=== PATIENT | female | born 1980 | race American Indian/Alaskan Native ===

== ENCOUNTER 2018-05-06 19:12 | Emergency (ER) | payer SELFPAY ==
[~2018-05-06] VITALS: Ht 160 cm; Wt 81.6 kg
[2018-05-06 23:00] VITALS: BP 128/81
[2018-05-06] MEDS ORDERED: KETOROLAC TROMETH 60MG/2ML VIAL IM ONE (23:30)
== END 2018-05-06 23:32 | disposition home or self-care (01) ==
LOC: ER 19:12
DX: S59.901A Unspecified injury of right elbow, initial encounter (principal); W22.8XXA Striking against or struck by other objects, initial encounter; Y93.89 Activity, other specified; Y99.8 Other external cause status; Y92.89 Other specified places as the place of occurrence of the external cause
CPT/HCPCS: 73080; 96372; 99283; J1885

== ENCOUNTER 2018-06-23 10:48 | Emergency (ER) | payer SELFPAY ==
[~2018-06-23] VITALS: Ht 160 cm; Wt 81.6 kg
[2018-06-23 11:00] VITALS: BP 135/74
[2018-06-23] MEDS ORDERED: ASPirin 81 mg TAB PO ONE (11:15)
[2018-06-23 12:03] LABS: Basophils # (auto) 0.1 uL; Eosinophils # (auto) 0.1 uL; Hemoglobin 11.7 g/dL (12.2-16.2); White Blood Cell 7.7 10^3/uL (4.4-10.8)
[2018-06-23 12:05] LABS: Basophils % (auto) 0.9 % (0.0-2.0); Eosinophils % (auto) 1.5 % (0.0-7.0); Hematocrit 36.9 % (36.0-46.0); Lymphocytes # (auto) 2.5 uL; Lymphocytes % (auto) 32.2 % (10.0-50.0); Mean Corpuscular Hemoglobin 22.5 pg (28.0-32.0); Mean Corpuscular Hgb Conc. 31.6 g/dL (32.0-36.0); Mean Corpuscular Volume 71.2 fL (80.0-100.0); Monocytes # (auto) 0.4 uL; Monocytes % (auto) 4.6 % (0.0-12.0); Neutrophils # (auto) 4.7 uL; Neutrophils % (auto) 60.8 % (37.0-80.0); Platelet Count (auto) 354 10^3/uL (140-450); Red Blood Cells 5.19 10^6/uL (4.0-5.20); Red Cell Distribution Width 18.1 % (11.8-14.3)
[2018-06-23 12:15] LABS: Albumin 3.9 g/dL (3.4-5.0); Anion Gap 8 (5-15); Blood Urea Nitrogen 9 mg/dL (7-18); Calcium 8.7 mg/dL (8.5-10.1); Carbon Dioxide 24 mmol/L (21-32); Chloride 108 mmol/L (98-107); Glucose 128 mg/dL (74-106); Potassium 3.1 mmol/L (3.5-5.1); Sodium 140 mmol/L (136-145)
[2018-06-23 12:21] LABS: Alanine Aminotransferase 21 U/L (13-56); Alkaline Phosphatase 82 U/L (45-117); Aspartate Aminotransferase 17 U/L (15-37); Bilirubin, Total 0.9 mg/dL (0.2-1.0); GFR African American > 60 mL/min; GFR Non-African American > 60 mL/min; Total Protein 8.5 g/dL (6.4-8.2)
== END 2018-06-23 12:53 | disposition home or self-care (01) ==
LOC: ER 10:48
DX: R07.89 Other chest pain (principal)
CPT/HCPCS: 36415; 71046; 80053; 84484; 85025; 93005

== ENCOUNTER 2024-05-27 14:16 | Emergency (ER) | payer MEDICAID, OTHER ==
[~2024-05-27] VITALS: Ht 160 cm; Wt 96.4 kg
--- NOTE | 2024-05-27 15:30 | ED.PDOC ---
History of Present Illness HPI Comments 43 y.o female presents to the ED fir a chief complaint of a cough associated with congestion and back pain that started 2 days ago. Patient reports spontaneous onset of symptoms with recent illness exposure. Patient denies any chest pain, SOB, fever, chill, nausea, vomiting or diarrhea. She denies any medical, surgical history of allergies. Patient was mildly tachycardic at arrival. Chief Complaint: Cough Time Seen by MD: 15:20 Primary Care Provider: NONE Reviewed Notes: Nurses Notes, Medications, Allergies Allergies: Coded Allergies: NO KNOWN ALLERGIES (Unverified , 05/06/18) Information Source: Patient Mode of Arrival: Ambulatory Severity: Moderate Timing: Days (2) Duration: Since onset Prehospital treatment: None Past Medical History PAST MEDICAL HISTORY: Denies Surgical History: Denies all surgeries AIRPORT LOCATION MANAGER History: No Pertinent AIRPORT LOCATION MANAGER History Family History Family History: Unknown Social History Smoker: Non-Smoker Alcohol: Denies ETOH Use Drugs: Denies Drug Use Lives In: Home Constitutional: denies: chills, diaphoresis, fatigue, fever, malaise, sweats, weakness, others EENTM: reports: nose congestion; denies: blurred vision, double vision, ear bleeding, ear discharge, ear drainage, ear pain, ear ringing, eye pain, eye redness, hearing loss, mouth pain, mouth swelling, nasal discharge, nose bleeding, nose pain, photophobia, tearing, throat pain, throat swelling, voice changes, others Respiratory: reports: cough; denies: hemoptysis, orthopnea, SOB at rest, shortness of breath, SOB with excertion, stridor, wheezing, others Cardiovascular: reports: chest pain (Radiating to her right-sided back); denies: dizzy spells, diaphoresis, Dyspnea on exertion, edema, irregular heart beat, left arm pain, lightheadedness, palpitations, PND, syncope, others Gastrointestinal: denies: abdomen distended, abdominal pain, blood streaked bowels, constipated, diarrhea, dysphagia, difficulty swallowing, hematemesis, melena, nausea, poor appetite, poor fluid intake, rectal bleeding, rectal pain, vomiting, others Genitourinary: denies: abnormal vagina bleeding, burning, dyspareunia, dysuria, flank pain, frequency, hematuria, incontinence, pain, , vagina discharge, urgency, others Neurological: denies: dizziness, fainting, headache, left sided numbness, left sided weakness, numbness, paresthesia, pre-existing deficit, right sided numbness, right sided weakness, seizure, speech problems, tingling, tremors, weakness, others Musculoskeletal: reports: back pain; denies: gout, joint pain, joint swelling, muscle pain, muscle stiffness, neck pain, others Integumetry: denies: bruises, change in color, change in hair/nails, dryness, laceration, lesions, lumps, rash, wounds, others Allergic/Immunocompromised: denies: Difficulty Healing, Frequent Infections, Hives, Itching, others Hematologic/Lymphatic: denies: anemia, blood clots, easy bleeding, easy bruising, swollen glands, others Endocrine: denies: excessive hunger, excessive sweating, excessive thirst, excessive urination, flushing, intolerance to cold, intolerance to heat, unexplained weight gain, unexplained weight loss, others Psychiatric: denies: anxiety, bipolar disorder, depression, hopeless, panic disorder, schizophrenia, sleepless, suicidal, others All Other Systems: Reviewed and Negative Physical Exam General Appearance: Moderate Distress (Patient appears as a [id number] ill 43-year-old female), Obese HEENT: Normal ENT Inspection, Pharynx Normal, TMs Normal Neck: Full Range of Motion, Non-Tender, Normal, Normal Inspection Respiratory: Chest Non-Tender, Lungs Clear, No Accessory Muscle Use, No Respiratory Distress, Normal Breath Sounds, Other (Unremarkable auscultation bilateral lung deng.) Cardiovascular: No Edema, No JVD, No Murmur, No Gallop, Normal Peripheral Pulses, Tachycardia Breast Exam: Deferred Gastrointestinal: No Organomegaly, Non Tender, No Pulsatile Mass, Normal Bowel Sounds, Soft Genitalia: Deferred Pelvic: Deferred Rectal: Deferred Extremities: No calf tenderness, Normal capillary refill, Normal inspection, Normal range of motion, Non-tender, No pedal edema Musculoskeletal : Apperance: Normal Neurologic: Alert, No Motor Deficits, Normal Affect, Normal Mood, No Sensory Deficits Cerebellar Function: Normal Reflexes: Normal Skin: Dry, Normal Color, Warm Lymphatic: No Adenopathy Was a procedure done? Was a procedure done?: No Differential Dx Considerations may include: URI, Viral Syndrome, Bronchitis, PNA, Dehydration, influenza a/B, COVID-19 X-Ray, Labs, Meds, VS Vital Signs Date Time Temp Pulse Resp B/P (MAP) Pulse Ox O2 Delivery O2 Flow Rate FiO2 05/27/24 16:29 98.1 100 19 136/58 (84) 99 98.1 05/27/24 16:29 100 19 99 Room Air 05/27/24 15:34 22 98 Room Air* 0 21 05/27/24 14:56 97.5 109 20 159/63 (95) 99 Lab Test 05/27/24 16:23 Range/Units Influenza Type A Antigen Negative Negative Influenza Type B Antigen Negative Negative SARS-CoV-2 Antigen (Rapid) Negative NEGATIVE Current Medications Medications (Trade) Dose Ordered Sig/Mary Route Start Time Stop Time Status Last Admin Albuterol (Ventolin Medneb) 5 mg ONCE ONCE NEB 05/27/24 15:15 05/27/24 15:16 DC 05/27/24 15:34 Ipratropium [place] (Atrovent Medneb) 0.5 mg ONCE ONCE NEB 05/27/24 15:15 05/27/24 15:16 DC 05/27/24 15:34 Dexamethasone Sodium Phosphate (Decadron Injection) 10 mg ONCE ONCE IM 05/27/24 15:15 05/27/24 15:16 DC 05/27/24 16:24 X-Ray, Labs, Meds, VS Comment All studies performed the ED were evaluated by me personally. Imaging studies were unremarkable for any consolidation or intrapulmonary concerns. Swabs were unremarkable for any influenza or COVID-19. Patient appears to be suffering from a viral upper respiratory illness. Advise utilizing medication as needed as well as good hydration and healthy nutrition throughout illness event. Time of 1ST Reevaluation: 17:31 Reevaluation 1ST: Improved Consultation: PCP Patient Education/Counseling: Diagnosis, Treatment, Prognosis Family Education/Counseling: Diagnosis, Treatment, No Family Present Departure 1 Departure Time of Disposition: 17:31 Impression: Primary Impression: Viral upper respiratory illness Disposition: HOME / SELF CARE / HOMELESS Condition: Stable Additional Instructions: Advise utilizing medication as needed for symptomatic relief as well as good hydration and healthy nutrition throughout illness event. e-Prescriptions Benzonatate (Benzonatate) 100 Mg Cap 1 CAP PO Q6HP PRN, #20 CAP Prov: ELY WEINSTEIN PAC 05/27/24 Albuterol Sulfate (Albuterol Sulfate Hfa) 108 Mcg/Act Aer 108 MCG IN Q4HP PRN, #1 AER Prov: ELY WEINSTEIN PAC 05/27/24 Acetaminophen (Acetaminophen) 500 Mg Tab 500 MG PO Q4HP PRN, #20 TAB Prov: ELY WEINSTEIN PAC 05/27/24 Discharged With: Self, Friend Critical Care Note Critical Care Time?: No Stability Stability form required: No I personally scribed for ELY WEINSTEIN PAC ([email or web address]) on 05/27/24 at 15:30. Electronically submitted by Tori Polanco ([facility]). ELY WEINSTEIN PAC May 27, 2024 15:30
[2024-05-27] MEDS: IPRATROPIUM BROM 0.5 MG/2.5ML INH SOL NEB ONE (15:34)
[2024-05-27] MEDS: ALBUTEROL SULF 2.5 MG/0.5ML(0.5%) NEB SOLN NEB ONE (15:34)
--- NOTE | 2024-05-27 15:34 | DVH ---
CHEST RADIOGRAPH Indication: Shortness of breath Technique: Single frontal view of the chest was obtained Comparison: None FINDINGS: Lines and Tubes: None Lungs: No focal consolidation. Pleura: No effusion. No pneumothorax. Cardiomediastinal contours: Unremarkable Bones: No acute osseous abnormality. IMPRESSION: No acute cardiopulmonary disease.
[2024-05-27] MEDS: DexAMETHasone SOD PHOS 10MG/1ML VIAL INJ IM ONE (16:24)
[2024-05-27 17:21] LABS: COVID19 ANTIGEN SOFIA FIA NEGATIVE (NEGATIVE); Rapid Influenza A Negative (Negative); Rapid Influenza B Negative (Negative)
[2024-05-27] MEDS ORDERED: BENZ100C97 PO (17:32)
[2024-05-27] MEDS ORDERED: ALBU108A5 IN (17:32)
[2024-05-27] MEDS ORDERED: ACET500T58 PO (17:32)
[2024-05-27 18:06] VITALS: BP 122/61; PULSE 96; RESP 16; TEMP 98.2; O2SAT 100
== END 2024-05-27 18:07 | disposition home or self-care (01) ==
LOC: ER 14:16
DX: J06.9 Acute upper respiratory infection, unspecified (principal); B97.89 Other viral agents as the cause of diseases classified elsewhere; Z20.822 Contact with and (suspected) exposure to COVID-19
CPT/HCPCS: 36415; 71045; 87426; 87804; 94640; 96372; 99284; J1100

== ENCOUNTER 2024-07-18 14:27 | Inpatient (IN) | payer BC, MEDICAID ==
[~2024-07-18] VITALS: Ht 160 cm; Wt 97.1 kg
[~2024-07-18 14:27] MED LIST: ACET500T58 PO; ALBU108A5 IN; BENZ100C97 PO
--- NOTE | 2024-07-18 15:08 | ED.PDOC ---
History of Present Illness HPI Comments 43F presents to the ER w/ prior Hx of asthma which may be associated to the c/c of SOB. Pt reports on having SOB and right sided CP whenever she breathes in for 3 days. Pt states on also having cough for a day and a half. Denies chills, fever, N/V/D, or other associated symptom's, modifiers, or recent injuries or sick contact at this time. Chief Complaint: Shortness of Breath Time Seen by MD: 15:00 Primary Care Provider: none Reviewed Notes: Nurses Notes, Medications, Allergies Allergies: Coded Allergies: NO KNOWN ALLERGIES (Unverified , 05/06/18) Home Meds Active Scripts Benzonatate (Benzonatate) 100 Mg Cap, 1 CAP PO Q6HP PRN, #20 CAP Prov:ELY WEINSTEIN PAC 05/27/24 Albuterol Sulfate (Albuterol Sulfate Hfa) 108 Mcg/Act Aer, 108 MCG IN Q4HP PRN, #1 AER Prov:ELY WEINSTEIN PAC 05/27/24 Acetaminophen (Acetaminophen) 500 Mg Tab, 500 MG PO Q4HP PRN, #20 TAB Prov:ELY WEINSTEIN PAC 05/27/24 Information Source: Patient Mode of Arrival: Ambulatory Severity: Moderate Timing: Days Duration: Since onset, Days Prehospital treatment: None Past Medical History PAST MEDICAL HISTORY: Asthma Surgical History: Denies all surgeries BOX COVERING MACHINE OPERATOR History: No Pertinent BOX COVERING MACHINE OPERATOR History Family History Family History: Reviewed,noncontributory to illness, Unknown Social History Smoker: Non-Smoker Alcohol: Denies ETOH Use Drugs: Denies Drug Use Lives In: Home Constitutional: denies: chills, diaphoresis, fatigue, fever, malaise, sweats, w eakness, others EENTM: denies: blurred vision, double vision, ear bleeding, ear discharge, ear drainage, ear pain, ear ringing, eye pain, eye redness, hearing loss, mouth pain, mouth swelling, nasal discharge, nose bleeding, nose congestion, nose pain, photophobia, tearing, throat pain, throat swelling, voice changes, others Respiratory: reports: cough, shortness of breath; denies: hemoptysis, orthopnea, SOB at rest, SOB with excertion, stridor, wheezing, others Cardiovascular: reports: chest pain; denies: dizzy spells, diaphoresis, Dyspnea on exertion, edema, irregular heart beat, left arm pain, lightheadedness, palpitations, PND, syncope, others Gastrointestinal: denies: abdomen distended, abdominal pain, blood streaked bowels, constipated, diarrhea, dysphagia, difficulty swallowing, hematemesis, melena, nausea, poor appetite, poor fluid intake, rectal bleeding, rectal pain, vomiting, others Genitourinary: denies: abnormal vagina bleeding, burning, dyspareunia, dysuria, flank pain, frequency, hematuria, incontinence, pain, , vagina discharge, urgency, others Neurological: denies: dizziness, fainting, headache, left sided numbness, left sided weakness, numbness, paresthesia, pre-existing deficit, right sided numbness, right sided weakness, seizure, speech problems, tingling, tremors, weakness, others Musculoskeletal: denies: back pain, gout, joint pain, joint swelling, muscle pain, muscle stiffness, neck pain, others Integumetry: denies: bruises, change in color, change in hair/nails, dryness, laceration, lesions, lumps, rash, wounds, others Allergic/Immunocompromised: denies: Difficulty Healing, Frequent Infections, Hives, Itching, others Hematologic/Lymphatic: denies: anemia, blood clots, easy bleeding, easy bruising, swollen glands, others Endocrine: denies: excessive hunger, excessive sweating, excessive thirst, excessive urination, flushing, intolerance to cold, intolerance to heat, unexplained weight gain, unexplained weight loss, others Psychiatric: denies: anxiety, bipolar disorder, depression, hopeless, panic disorder, schizophrenia, sleepless, suicidal, others All Other Systems: Reviewed and Negative Physical Exam General Appearance: Moderate Distress, Normal HEENT: Normal ENT Inspection, Pharynx Normal, TMs Normal Neck: Full Range of Motion, Non-Tender, Normal, Normal Inspection Respiratory: Chest Non-Tender, No Accessory Muscle Use, No Respiratory Distress, Other (Coarse breath sounds) Cardiovascular: No Edema, No JVD, No Murmur, No Gallop, Normal Peripheral Pulses, Regular Rate/Rhythm Breast Exam: Deferred Gastrointestinal: No Organomegaly, Non Tender, No Pulsatile Mass, Normal Bowel Sounds, Soft Genitalia: Deferred Pelvic: Deferred Rectal: Deferred Extremities: No calf tenderness, Normal capillary refill, Normal inspection, Normal range of motion, Non-tender, No pedal edema Musculoskeletal : Apperance: Normal Neurologic: Alert, manager file II-XII nml as Tested, No Motor Deficits, Normal Affect, Normal Mood, No Sensory Deficits Cerebellar Function: Normal Reflexes: Normal Skin: Dry, Normal Color, Warm Peripheral Pulses: 3+ Radial (R), 3+ Radial (L) Lymphatic: No Adenopathy Was a procedure done? Was a procedure done?: No Differential Dx Considerations may include: Pneumonitis Electrolyte imbalance X-Ray, Labs, Meds, VS Vital Signs Date Time Temp Pulse Resp B/P (MAP) Pulse Ox O2 Delivery O2 Flow Rate FiO2 07/18/24 14:47 19 97 Room Air* 0 21 07/18/24 14:43 97.1 116 19 133/69 (90) 97 Lab Test 07/18/24 15:00 Range/Units White Blood Count Pending Red Blood Count Pending Hemoglobin Pending Hematocrit Pending Mean Corpuscular Volume Pending Mean Corpuscular Hemoglobin Pending Mean Corpuscular Hemoglobin Concent Pending Red Cell Distribution Width Pending Platelet Count Pending Mean Platelet Volume Pending Neutrophils (%) (Auto) Pending Lymphocytes (%) (Auto) Pending Monocytes (%) (Auto) Pending Basophils (%) (Auto) Pending Neutrophils # (Auto) Pending Lymphocytes # (Auto) Pending Monocytes # (Auto) Pending D-Dimer, Quantitative Pending Sodium Level Pending Potassium Level Pending Chloride Level Pending Carbon Dioxide Level Pending Anion Gap Pending Blood Urea Nitrogen Pending Creatinine Pending Glomerular Filtration Rate Calc Pending BUN/Creatinine Ratio Pending Serum Glucose Pending Calcium Level Pending Patient alert pain Complaining of chest pain especially after deep inspiration. Cough. Saturation pristine on room air. Tachycardia. Was given steroid. Was given aspirin. Explained to the patient. Continue cardiac monitoring. EKG reviewed does not show any acute changes. Time of 1ST Reevaluation: 15:30 Reevaluation 1ST: Unchanged Patient Education/Counseling: Diagnosis, Treatment, Prognosis Family Education/Counseling: No Family Present Departure 1 Departure Time of Disposition: 15:15 Impression: Primary Impression: Pneumonitis Additional Impression: Chest pain of unknown etiology Disposition: ADMITTED INPATIENT Admit to: Med Surg Condition: Guarded Critical Care Note Critical Care Time?: No Stability Stability form required: No Heart Score Heart Score: Heart Score Response (Comments) Value History Slightly Suspicious 0 EKG Normal 0 Age <45 0 Risk Factors No known risk factors 0 Troponin N/A 0 Total 0 I personally scribed for BETTINA PÑEA MD ([email or web address]) on 07/18/24 at 15:08. Electronically submitted by José Luis Henry ([email or web address]). BETTINA PEÑA MD Jul 18, 2024 15:08
[2024-07-18 15:11] LABS: Basophils # (auto) 0.1 10 ^3/uL (0-0.2); Eosinophils # (auto) 0.4 10 ^3/uL (0-0.8); Lymphocytes # (auto) 2.3 10 ^3/uL (0.4-5.4); Monocytes # (auto) 0.6 10 ^3/uL (0-1.3); Monocytes % (auto) 7.6 % (0.0-12.0); Platelet Count (auto) 326 10^3/uL (140-450); Red Cell Distribution Width 19.5 % (11.8-14.3); White Blood Cell 8.2 10^3/uL (4.4-10.8)
[2024-07-18 15:13] LABS: Basophils % (auto) 1.2 % (0.0-2.0); Eosinophils % (auto) 4.9 % (0.0-7.0); Hematocrit 28.6 % (36.0-46.0); Hemoglobin 8.2 g/dL (12.2-16.2); Lymphocytes % (auto) 28.5 % (10.0-50.0); Mean Corpuscular Hemoglobin 16.3 pg (28.0-32.0); Mean Corpuscular Hgb Conc. 28.6 g/dL (32.0-36.0); Mean Corpuscular Volume 56.8 fL (80.0-100.0); Neutrophils # (auto) 4.7 10 ^3/uL (1.6-8.6); Neutrophils % (auto) 57.8 % (37.0-80.0); Red Blood Cells 5.04 10^6/uL (4.0-5.20)
[2024-07-18] MEDS: ASPirin 325 MG TAB PO ONE (15:15)
[2024-07-18 15:22] LABS: Sodium 140 mmol/L (136-145)
[2024-07-18 15:23] LABS: Anion Gap 9 (5-15); Calcium 9.5 mg/dL (8.7-10.4); Carbon Dioxide 23 mmol/L (20-31)
[2024-07-18 15:28] LABS: BUN/Creatinine Ratio 17.7 (10.0-20.0); Blood Urea Nitrogen 11 mg/dL (9-23); Chloride 108 mmol/L (98-107); Potassium 3.3 mmol/L (3.5-5.1)
[2024-07-18 15:31] LABS: Glucose 168 mg/dL (74-106)
[2024-07-18 15:43] LABS: Hypochromia Moderate; Platelet Estimate Adequate
[2024-07-18 15:44] LABS: Ovalocytes FEW
--- NOTE | 2024-07-18 15:55 | DVH ---
CHEST RADIOGRAPH Indication: cough Technique: Single frontal view of the chest was obtained COMPARISON: XY CHEST PORTABLE on DOS: 05/27/24 FINDINGS: Lines and Tubes: None Lungs: Clear Pleura: No effusion. No pneumothorax. Cardiomediastinal contours: Unremarkable Bones: Unremarkable IMPRESSION: 1. No acute disease.
[2024-07-18] MEDS: methylPREDNISolone SOD SUCC 125 MG/2 ML VL IV ONE (18:26)
[2024-07-18] MEDS: POTASSIUM CHL 20 Meq TABLET PO ONE (20:25)
[2024-07-18 20:30] VITALS: RESP 18; O2SAT 98
[2024-07-18 21:41] VITALS: BP 131/69; PULSE 93; RESP 19; TEMP 98.1; O2SAT 97
[2024-07-18] MEDS: KETOROLAC TROMETH 30 MG/ML 1ML VIAL IV SCH (22:00)
[2024-07-18 22:38] LABS: COVID19 ANTIGEN SOFIA FIA NEGATIVE (NEGATIVE); Rapid Influenza A Negative (Negative); Rapid Influenza B Negative (Negative)
[2024-07-18] MEDS: SODIUM CHLORIDE 0.9% 1,000 ML IV ONE (22:44)
[2024-07-18] MEDS: ACETAMINOPHEN 325 MG TAB PO SCH (22:45)
[2024-07-18 23:08] LABS: % Iron Saturation 4.5 % (15-50)
--- NOTE | 2024-07-19 03:41 | DVHHPRES ---
History of Present Illness Resident Creating Document: CALEB STILES RESIDENT Reason for Visit: chest pain History of Present Illness A 43-year-old female with a past medical history of asthma presents to the emergency department with a complaint of shortness of breath and pleuritic right upper chest pain for the past three days. She describes the pain as sharp, worse with inspiration, and localized to a tender area on palpation. She also reports a dry cough that began 1 days ago. The SOB is due to the pain. She denies fever, chills, nausea, vomiting, or recent upper respiratory infections. Laboratory evaluation revealed hypokalemia and anemia with a microcytic pattern. Iron panel results indicate iron deficiency anemia. Further history revealed metrorrhagia, with the last menstrual period in May, which was described as significantly heavy. Review of Systems Constitutional: No: Fever, Chills, Sweats, Weakness, Malaise, Other Eyes: No: Pain, Vision change, Conjunctivae inflammation, Eyelid inflammation, Other, Redness ENT: No: Ear pain, Ear discharge, Nose pain, Nose discharge, Nose congestion, Mouth pain, Mouth swelling, Throat pain, Throat swelling, Other Respiratory: No: Cough, Dry, Shortness of breath, SOB with excertion, Wheezing, Hemoptysis, Pleuritic Pain, Sputum, Wheezing, Other Cardiovascular: No: Chest Pain, Palpitations, Orthopnea, Paroxysmal Noc. Dyspnea, Edema, Lt Headedness, Other Gastrointestinal: No: Nausea, Vomiting, Abdominal Pain, Diarrhea, Constipation, Melena, Hematochezia, Other Genitourinary: No Dysuria, No Frequency, No Incontinence, No Hematuria, No Retention, No Other Musculoskeletal: No: other, neck pain, shoulder pain, arm pain, back pain, hand pain, leg pain, foot pain Skin: No: Rash, Lesions, Jaundice, Bruising, Other Neurological: No: Weakness, Numbness, Incoordination, Change in speech, Confusion, Seizures, Other Allergies: Coded Allergies: NO KNOWN ALLERGIES (Unverified , 05/06/18) Medications Current Medications Medications Dose Ordered Sig/Mary Route Start Time Stop Time Status Last Admin Dose Admin Acetaminophen 650 mg Q4HR PO 07/18/24 22:00 07/18/24 22:45 650 MG Ketorolac Tromethamine 30 mg TID IV 07/18/24 22:00 07/23/24 21:59 Ferrous Sulfate 325 mg BIDWM PO 07/19/24 08:00 Exam Vital Signs Vital Signs Date Time Temp Pulse Resp B/P (MAP) Pulse Ox O2 Delivery O2 Flow Rate FiO2 07/18/24 21:41 98.1 93 19 131/69 (89) 97 98.1 07/18/24 21:41 Room Air* 0 21 General Appearance: Alert, Oriented X3, Cooperative HEENT: Atraumatic, PERRLA, EOMI Respiratory: Clear to auscultation, Normal air movement Cardiovascular: Regular rate, Normal S1, Normal S2 Abdominal: Normal bowel sounds, Soft Extremities: No clubbing, No cyanosis Skin: No rashes, No breakdown Neuro: Normal gait, Normal speech Psych/Mental Status: Mental status NL, Mood NL Labs/Xrays Labs Test 07/18/24 21:16 07/18/24 15:00 Range/Units Influenza Type A Antigen Negative Negative Influenza Type B Antigen Negative Negative SARS-CoV-2 Antigen (Rapid) Negative NEGATIVE White Blood Count 8.2 4.4-10.8 10^3/uL Red Blood Count 5.04 4.0-5.20 10^6/uL Hemoglobin 8.2 L 12.2-16.2 g/dL Hematocrit 28.6 L 36.0-46.0 % Mean Corpuscular Volume 56.8 L 80.0-100.0 fL Mean Corpuscular Hemoglobin 16.3 L 28.0-32.0 pg Mean Corpuscular Hemoglobin Concent 28.6 L 32.0-36.0 g/dL Red Cell Distribution Width 19.5 H 11.8-14.3 % Platelet Count 326 140-450 10^3/uL Mean Platelet Volume 8.3 6.9-10.8 fL Neutrophils (%) (Auto) 57.8 37.0-80.0 % Lymphocytes (%) (Auto) 28.5 10.0-50.0 % Monocytes (%) (Auto) 7.6 0.0-12.0 % Eosinophils (%) (Auto) 4.9 0.0-7.0 % Basophils (%) (Auto) 1.2 0.0-2.0 % Neutrophils # (Auto) 4.7 1.6-8.6 10 ^3/uL Lymphocytes # (Auto) 2.3 0.4-5.4 10 ^3/uL Monocytes # (Auto) 0.6 0-1.3 10 ^3/uL Eosinophils # (Auto) 0.4 0-0.8 10 ^3/uL Basophils # (Auto) 0.1 0-0.2 10 ^3/uL Nucleated Red Blood Cells 0.0 % Platelet Estimate Adequate Hypochromasia (manual) Moderate Microcytosis Moderate Ovalocytes Few Stomatocytes D-Dimer, Quantitative 0.23 0.0-0.49 mg/L FEU Sodium Level 140 136-145 mmol/L Potassium Level 3.3 L 3.5-5.1 mmol/L Chloride Level 108 H 98-107 mmol/L Carbon Dioxide Level 23 20-31 mmol/L Anion Gap 9 5-15 Blood Urea Nitrogen 11 9-23 mg/dL Creatinine 0.62 0.550-1.02 mg/dL Glomerular Filtration Rate Calc 115 >90 mL/min BUN/Creatinine Ratio 17.7 10.0-20.0 Serum Glucose 168 H 74-106 mg/dL Calcium Level 9.5 8.7-10.4 mg/dL Iron Level 22 L 50-170 ug/dL Total Iron Binding Capacity 493 H 250-425 ug/dL Percent Iron Saturation 4.5 L 15-50 % Ferritin 4.2 L 10-291 ng/mL Troponin I High Sensitivity < 3 L </=34 ng/L Thyroid Stimulating Hormone (TSH) 1.32 0.55-4.78 uIU/mL Assessment/Plan Assessment/Plan 43-year-old female with a history of asthma presenting with pleuritic right- sided chest pain, shortness of breath, and anemia, with laboratory findings concerning for iron deficiency anemia secondary to heavy menstrual bleeding. #Pleuritic Chest Pain Likely musculoskeletal in nature given tenderness to palpation. Normal EKG, normal xray Pain control with NSAIDs and acetaminophen. #Dyspnea Likely secondary to pleuritic pain and possible anemia. Monitor oxygen saturation, #Iron Deficiency Anemia Likely secondary to metrorrhagia. Start iron supplementation. Pelvic US Occult stool blood Obgyn consult #Hypokalemia K PO #H/o Asthma No acute exacerbation noted. Continue as-needed inhaler use. Case discussed with Dr Mendoza Time spent on care 23 min Plan discussed with: Patient, Other My Orders Orders - CALEB STILES RESIDENT Procedure Category Date Status Time Admit ADMIT 07/18/24 Transmitted 20:42 Acetaminophen Tablet PHA 07/18/24 In Process (Tylenol Tablet) 22:00 Ketorolac Injection PHA 07/18/24 In Process (Toradol Injection) 22:00 Sodium Chloride 0.9% PHA 07/18/24 In Process 20:45 Electrocardigram EKG 07/18/24 Logged 20:48 Complete Blood Count LAB 07/19/24 Logged 04:00 Comprehensive LAB 07/19/24 Logged Metabolic Panel 04:00 Hemoglobin A1c LAB 07/19/24 Logged 04:00 Lipid Panel LAB 07/19/24 Logged 04:00 Magnesium LAB 07/19/24 Logged 04:00 Phosphorus LAB 07/19/24 Logged 04:00 Vitamin B12 LAB 07/19/24 Logged 04:00 Vitamin D, 25-Hydroxy LAB 07/19/24 Logged 04:00 Communication Order ORDERS 07/18/24 Transmitted 23:54 Ferrous Sulfate Tablet PHA 07/19/24 In Process 08:00 Urine ED NURSING 07/19/24 Transmitted Regular Diet DIET 07/19/24 Transmitted Breakfast Date of Service: Jul 18, 2024 Billing Provider: LAUREN MENDOZA MD Common Visit Codes: 37408-INRYOER INP/OBS CARE (HIGH) CALEB STILES RESIDENT Jul 19, 2024 03:41 LAUREN MENDOZA MD Jul 19, 2024 14:14
[2024-07-19 04:06] LABS: Eosinophils # (auto) 0.5 10 ^3/uL (0-0.8); Nucleated Red Blood Cells % 0.1 %
[2024-07-19 04:09] LABS: Basophils # (auto) 0 10 ^3/uL (0-0.2); Basophils % (auto) 0.8 % (0.0-2.0); Eosinophils % (auto) 8.1 % (0.0-7.0); Hematocrit 27.3 % (36.0-46.0); Hemoglobin 7.7 g/dL (12.2-16.2); Lymphocytes # (auto) 1.9 10 ^3/uL (0.4-5.4); Lymphocytes % (auto) 30.4 % (10.0-50.0); Mean Corpuscular Hemoglobin 16.2 pg (28.0-32.0); Mean Corpuscular Hgb Conc. 28.1 g/dL (32.0-36.0); Mean Corpuscular Volume 57.6 fL (80.0-100.0); Monocytes # (auto) 0.7 10 ^3/uL (0-1.3); Monocytes % (auto) 10.8 % (0.0-12.0); Neutrophils # (auto) 3.1 10 ^3/uL (1.6-8.6); Neutrophils % (auto) 49.9 % (37.0-80.0); Platelet Count (auto) 279 10^3/uL (140-450); Red Blood Cells 4.74 10^6/uL (4.0-5.20); Red Cell Distribution Width 19.7 % (11.8-14.3); White Blood Cell 6.2 10^3/uL (4.4-10.8)
[2024-07-19 04:19] LABS: Alanine Aminotransferase 19 U/L (7-40); Albumin 4.2 g/dL (3.2-4.8); Alkaline Phosphatase 72 U/L (46-116); Anion Gap 9 (5-15); Aspartate Aminotransferase 28 U/L (13-40); BUN/Creatinine Ratio 17.6 (10.0-20.0); Blood Urea Nitrogen 9 mg/dL (9-23); Carbon Dioxide 21 mmol/L (20-31); Cholesterol 109 mg/dL (< 200); LDL Cholesterol 70 mg/dL (< 100); Potassium 3.9 mmol/L (3.5-5.1); Sodium 138 mmol/L (136-145); Triglycerides 99 mg/dL (< 150)
[2024-07-19 04:20] LABS: Bilirubin, Total 0.9 mg/dL (0.2-1.0); Chloride 108 mmol/L (98-107); Glucose 133 mg/dL (74-106); HDL Cholesterol 31 mg/dL (40-59)
[2024-07-19 05:00] VITALS: BP 127/60; PULSE 93; RESP 17; TEMP 98.3; O2SAT 98
[2024-07-19 05:30] LABS: Urine Blood Negative /uL (Negative); Urine Clarity Clear (Clear); Urine Color Light-Yellow (Yellow); Urine Mucus FEW (None Seen); Urine Protein, UAD Negative (Negative); Urine Specific Gravity 1.024 (1.001-1.035); Urine Squamous Epithelial Cell FEW /hpf (<5); Urine Urobilinogen Normal (Negative); Urine WBC 2 /HPF (0-5); Urine pH 5.5 (5.0-9.0)
[2024-07-19] MEDS: FERROUS SULFATE 325mg EC TAB PO SCH (07:05)
--- NOTE | 2024-07-19 08:02 | DVH ---
EXAM: US Pelvis Transabdominal, Complete CLINICAL INDICATION: metrorragias TECHNIQUE: Real-time complete transabdominal pelvic ultrasound with image documentation. COMPARISON: None FINDINGS: UTERUS/CERVIX: Multiple uterine fibroids, largest measuring up to 7.5 cm. The uterus measures 13.8 x 10.3 x 10.1 cm. The endometrial stripe measures 1.36 cm in thickness. RIGHT OVARY: Right simple ovarian cysts measuring up to 1.1 cm. Normal blood flow. The right ovar y measures 7.3 x 5.1 x 5.3 cm. LEFT OVARY: Simple left ovarian cyst measuring up to 2.0 cm. Normal blood flow. The left ovary me asures 7.9 x 6.4 x 6.5 cm. FREE FLUID: No free fluid. BLADDER: Unremarkable as visualized. Wall is normal thickness for degree of distention. OTHER FINDINGS: . . . .. IMPRESSION: Uterine fibroids.
[2024-07-19 08:30] VITALS: BP 140/55; PULSE 94; RESP 18; TEMP 98.4; O2SAT 99
--- NOTE | 2024-07-19 14:06 | DVHINCON2 ---
Date of service: Jul 19, 2024 Reason for Consultation Uterine fibroids and anemia History of Present Illness History Source: Patient Exam Limitations: No limitations HPI Lolita Briscoe is a 43 y/o female patient with past medical history of asthma, who presented to the ED after a few days of right chest pain, associated with SOB and cough. During initial evaluation, CBC with evidence of anemia (Hb 7.7) and abdominal ultrasound showed evidence of multiple uterine fibroids up to 7.5 cm. During interview, LMP: 06/26/24. Menstrual period usually last four to five days, pt reports the use of five to six tampons per day with "cramps" only the first few days. Patient denies abdominal or pelvic pain, vomiting, diarrhea, blood in the stool or urinary symptoms. x 2, last vaginal delivery 23 years ago. No control. No sexual encounters in the past year. No sexual partner at this time. Home Meds Active Scripts Ibuprofen Micronized (MOTRIN TABLET) 600 Mg Tb, 600 MG PO TID PRN for 5 Days, #15 TAB *Black box warning-NSAIDS can increase risk of MO & hypertension, GI irritation, ulceration, bleed, perferation. Do not use post cardiac surgery. Use short duration/lowest effective dose. Prov:MINA MORALES CREASING MACHINE OPERATOR 07/19/24 Albuterol Sulfate (Albuterol Sulfate Hfa) 108 Mcg/Act Aer, 108 MCG IN Q4HP PRN for 30 Days, #1 AER Prov:MINA MORALES CREASING MACHINE OPERATOR 07/19/24 Benzonatate (Benzonatate) 100 Mg Cap, 1 CAP PO Q6HP PRN, #20 CAP Prov:ELY WEINSTEIN PAC 05/27/24 Acetaminophen (Acetaminophen) 500 Mg Tab, 500 MG PO Q4HP PRN, #20 TAB Prov:ELY WEINSTEIN PAC 05/27/24 Current Meds Albuterol inhaler Chest Pain Chief Complaint: Discomfort Onset/Duration of Chest Pain: 1 Week Chest Pain Timing: Gradual onset Quality of Chest Pain: Aching, Tearing Location of Chest Pain: Right Chest Pain Radiation: Radiates to back Prior Chest Pain/Cardiac Dalila: No prior chest pain Aggrevating Factors for CP: Coughing, Change in position Associated Symptoms of Chest P: Back pain, Cough Timing/Duration of Back Pain: > 1 Week Back Pain Location: T-spine, Paraspinous muscles Associated Symptoms of Back Pa: Muscle spasms Chief Complaint for Wheezing/A: Hx of asthma Onset/Duration of Wheezing/Ast: Gradual, Waxing, Waning Associated Symptoms for Wheez: Hurts to breath, Right chest discomfort Past Medical History Cardiac: No pertinent Hx Pulmonary: Asthma Central Nervous System: No pertinent Hx GI: No pertinent Hx Hemotology/Oncology: No pertinent Hx Hepatobiliary: No pertinent Hx Psychiatric: No pertinent Hx Musculoskeletal: No pertinent Hx Rheumotologic: No pertinent Hx Infectious Disease: No peritnent Hx ENT: No pertinent Hx Renal/: No pertinent Hx Endocrine: No pertinent Hx Dermatology: No pertinent Hx Past Surgical History: Appendectomy Family History: Cancer (Niece lymphoma, grandfather unknown primary) Patient Family History: Chronic obstructive pulmonary disease G8 MOTHER Smoker: No Hx (Negative) Alocohol: None Drugs: None Lives with: With family Review of Systems Constitutional: No symptom reported Ears, Nose, & Throat: No symptom reported Eyes: No symptom reported Pulmonary/Respiratory: Dyspnea, Cough Cardiovascular: No symptom reported Gastrointestinal: No symptom reported Genitourinary: No symptom reported Musculoskeletal: No symptom reported Skin: No symptom reported Psychiatric: No symptom reported Endocrine: No symptom reported Hemotologic/Lymphatic: No symptom reported H&P Exam Vital Signs Vital Signs Date Time Temp Pulse Resp B/P (MAP) Pulse Ox O2 Delivery O2 Flow Rate FiO2 07/19/24 08:30 98.4 94 18 140/55 (83) 99 98.4 07/18/24 21:41 Room Air* 0 21 General Appeara: Well developed, Well nourished Head Exam: Normal inspection Eye Exam: bilateral eye PERRL Pulmonary/Respiratory: Decreased breath sounds, Rhonci, Wheezing Cardiovascular/Chest: Normal Rhythm Abdominal Exam: Normal bowel sounds, Soft, No tenderness Rectal Exam: Deferred Pelvic Exam: 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 [place] / A AGE / SEX: 43 / F ADM STATUS: ADM IN SERVICE 0700 ORDERING PHYSICIAN: CALEB STILES RESIDENT PROCEDURE(s): PELUS - PELVIC REASON: metrorragias ORDER NUMBER(s): [id number], ACCESSION NUMBER(s): [id number] EXAM: US Pelvis Transabdominal, Complete CLINICAL INDICATION: metrorragias TECHNIQUE: Real-time complete transabdominal pelvic ultrasound with image documentation. COMPARISON: None FINDINGS: UTERUS/CERVIX: Multiple uterine fibroids, largest measuring up to 7.5 cm. The uterus measures 13.8 x 10.3 x 10.1 cm. The endometrial stripe measures 1.36 cm in thickness. RIGHT OVARY: Right simple ovarian cysts measuring up to 1.1 cm. Normal blood flow. The right ovary measures 7.3 x 5.1 x 5.3 cm. LEFT OVARY: Simple left ovarian cyst measuring up to 2.0 cm. Normal blood flow. The left ovary measures 7.9 x 6.4 x 6.5 cm. FREE FLUID: No free fluid. BLADDER: Unremarkable as visualized. Wall is normal thickness for degree of distention. OTHER FINDINGS: . . . .. IMPRESSION: Uterine fibroids. ATED BY: ELY BLACK MD DICTATED DATE/TIME: 07/19/24 0759 Labs Test 07/19/24 03:16 07/18/24 21:16 07/18/24 20:20 07/18/24 15:00 Range/Units White Blood Count 6.2 4.4-10.8 10^3/uL Red Blood Count 4.74 4.0-5.20 10^6/uL Hemoglobin 7.7 L 12.2-16.2 g/dL Hematocrit 27.3 L 36.0-46.0 % Mean Corpuscular Volume 57.6 L 80.0-100.0 fL Mean Corpuscular Hemoglobin 16.2 L 28.0-32.0 pg Mean Corpuscular Hemoglobin Concent 28.1 L 32.0-36.0 g/dL Red Cell Distribution Width 19.7 H 11.8-14.3 % Platelet Count 279 140-450 10^3/uL Mean Platelet Volume 8.5 6.9-10.8 fL Neutrophils (%) (Auto) 49.9 37.0-80.0 % Lymphocytes (%) (Auto) 30.4 10.0-50.0 % Monocytes (%) (Auto) 10.8 0.0-12.0 % Eosinophils (%) (Auto) 8.1 H 0.0-7.0 % Basophils (%) (Auto) 0.8 0.0-2.0 % Neutrophils # (Auto) 3.1 1.6-8.6 10 ^3/uL Lymphocytes # (Auto) 1.9 0.4-5.4 10 ^3/uL Monocytes # (Auto) 0.7 0-1.3 10 ^3/uL Eosinophils # (Auto) 0.5 0-0.8 10 ^3/uL Basophils # (Auto) 0 0-0.2 10 ^3/uL Nucleated Red Blood Cells 0.1 % Sodium Level 138 136-145 mmol/L Potassium Level 3.9 3.5-5.1 mmol/L Chloride Level 108 H 98-107 mmol/L Carbon Dioxide Level 21 20-31 mmol/L Anion Gap 9 5-15 Blood Urea Nitrogen 9 9-23 mg/dL Creatinine 0.51 L 0.550-1.02 mg/dL Glomerular Filtration Rate Calc 120 >90 mL/min BUN/Creatinine Ratio 17.6 10.0-20.0 Serum Glucose 133 H 74-106 mg/dL Hemoglobin A1c 6.1 H <5.7 % A1C Calcium Level 9.0 8.7-10.4 mg/dL Phosphorus Level 3.0 2.4-5.1 mg/dL Magnesium Level 2.0 1.6-2.6 mg/dL Total Bilirubin 0.9 0.2-1.0 mg/dL Aspartate Amino Transferase (AST) 28 13-40 U/L Alanine Aminotransferase (ALT) 19 7-40 U/L Alkaline Phosphatase 72 46-116 U/L Total Protein 7.0 5.7-8.2 g/dL Albumin 4.2 3.2-4.8 g/dL Triglycerides Level 99 < 150 mg/dL Cholesterol Level 109 < 200 mg/dL LDL Cholesterol 70 < 100 mg/dL HDL Cholesterol 31 L 40-59 mg/dL Vitamin B12 Level 478 211-911 pg/mL Vitamin D 25-Hydroxy 5.6 L 30.0-100 ng/mL Influenza Type A Antigen Negative Negative Influenza Type B Antigen Negative Negative SARS-CoV-2 Antigen (Rapid) Negative NEGATIVE Urine Color Light-yellow Yellow Urine Clarity Clear Clear Urine pH 5.5 5.0-9.0 Urine Specific [place] 1.024 1.001-1.035 Urine Protein Negative Negative Urine Ketones Negative Negative Urine Blood Negative Negative /uL Urine Nitrite Negative Negative Urine Bilirubin Negative Negative Urine Urobilinogen Normal Negative mg/dL Urine Leukocyte Esterase Negative Negative /uL Urine RBC 1 0 - 4 /hpf Urine Microscopic WBC 2 0-5 /HPF Urine Squamous Epithelial Cells Few <5 /hpf Urine Bacteria None Seen /hpf Urine Mucus Few None Seen Urine Glucose Normal Normal mg/dL Platelet Estimate Adequate Hypochromasia (manual) Moderate Microcytosis Moderate Ovalocytes Few Stomatocytes D-Dimer, Quantitative 0.23 0.0-0.49 mg/L FEU Iron Level 22 L 50-170 ug/dL Total Iron Binding Capacity 493 H 250-425 ug/dL Percent Iron Saturation 4.5 L 15-50 % Ferritin 4.2 L 10-291 ng/mL Troponin I High Sensitivity < 3 L </=34 ng/L Thyroid Stimulating Hormone (TSH) 1.32 0.55-4.78 uIU/mL Assessment/Plan Primary Diagnosis #Multiple uterine fibroids -No surgical management during this hospitalization -general practice Follow up in 3 weeks with lab results, will need EMBx, PAP - Tx options discussed: observation, medical therapy, myomectomy, UAE, Fibroid Acessa RF ablation of fibroid, vs hysterectomy #Chronic anemia -Iron panel -Iron sulfate PO daily -Transfuse if Hb <7 or major bleeding -H&H in two weeks #Costochondritis -Ibuprofen 600 mg TID for five days -Stretching and PT #Asthma exacerbation -Continue management by medical team -RT PRN. All questions were answered. Plan was discussed with nurse in charge. Lazara Vital MD PGY-1, FM Resident Plan Patient was seen with resident. I examined patient independently and reviewed all labs, imaging, Concur with findings, diagnosis and treatment plan F/U outpatient in [facility] clinic once stable for further work up and definitive treatment. [employer] WILL SIGN OFF Thank you for allowing me to participate in the care of this patient. Plan discussed with: Patient, Other (Dr. Jimenez) Date of Service: Jul 19, 2024 Billing Provider: GARIBALDI,CHRISTY G DO Common Visit Codes: CONSULT ONLY Consultation Codes: [id number] CONSULT <60MIN CHRISTY JIMENEZ DO Jul 19, 2024 14:06
[2024-07-19] MEDS ORDERED: IBU600T PO (16:10)
[2024-07-19] MEDS ORDERED: ALBU108A5 IN (16:10)
--- NOTE | 2024-07-19 16:13 | DVHDS2 ---
Discharge Summary Date of Admission Jul 18, 2024 at 20:42 Date of Discharge: Jul 19, 2024 Admitting Diagnosis Pleuritic chest pain with shortness of breaths Labs/Diagnostic Data: Laboratory Results Test 07/19/24 03:16 07/18/24 21:16 07/18/24 20:20 07/18/24 15:00 White Blood Count 6.2 10^3/uL (4.4-10.8) Red Blood Count 4.74 10^6/uL (4.0-5.20) Hemoglobin 7.7 g/dL (12.2-16.2) Hematocrit 27.3 % (36.0-46.0) Mean Corpuscular Volume 57.6 fL (80.0-100.0) Mean Corpuscular Hemoglobin 16.2 pg (28.0-32.0) Mean Corpuscular Hemoglobin Concent 28.1 g/dL (32.0-36.0) Red Cell Distribution Width 19.7 % (11.8-14.3) Platelet Count 279 10^3/uL (140-450) Mean Platelet Volume 8.5 fL (6.9-10.8) Neutrophils (%) (Auto) 49.9 % (37.0-80.0) Lymphocytes (%) (Auto) 30.4 % (10.0-50.0) Monocytes (%) (Auto) 10.8 % (0.0-12.0) Eosinophils (%) (Auto) 8.1 % (0.0-7.0) Basophils (%) (Auto) 0.8 % (0.0-2.0) Neutrophils # (Auto) 3.1 10 ^3/uL (1.6-8.6) Lymphocytes # (Auto) 1.9 10 ^3/uL (0.4-5.4) Monocytes # (Auto) 0.7 10 ^3/uL (0-1.3) Eosinophils # (Auto) 0.5 10 ^3/uL (0-0.8) Basophils # (Auto) 0 10 ^3/uL (0-0.2) Nucleated Red Blood Cells 0.1 % Sodium Level 138 mmol/L (136-145) Potassium Level 3.9 mmol/L (3.5-5.1) Chloride Level 108 mmol/L (98-107) Carbon Dioxide Level 21 mmol/L (20-31) Anion Gap 9 (5-15) Blood Urea Nitrogen 9 mg/dL (9-23) Creatinine 0.51 mg/dL (0.550-1.02) Glomerular Filtration Rate Calc 120 mL/min (>90) BUN/Creatinine Ratio 17.6 (10.0-20.0) Serum Glucose 133 mg/dL (74-106) Hemoglobin A1c 6.1 % A1C (<5.7) Calcium Level 9.0 mg/dL (8.7-10.4) Phosphorus Level 3.0 mg/dL (2.4-5.1) Magnesium Level 2.0 mg/dL (1.6-2.6) Total Bilirubin 0.9 mg/dL (0.2-1.0) Aspartate Amino Transferase (AST) 28 U/L (13-40) Alanine Aminotransferase (ALT) 19 U/L (7-40) Alkaline Phosphatase 72 U/L (46-116) Total Protein 7.0 g/dL (5.7-8.2) Albumin 4.2 g/dL (3.2-4.8) Triglycerides Level 99 mg/dL (< 150) Cholesterol Level 109 mg/dL (< 200) LDL Cholesterol 70 mg/dL (< 100) HDL Cholesterol 31 mg/dL (40-59) Vitamin B12 Level 478 pg/mL (211-911) Vitamin D 25-Hydroxy 5.6 ng/mL (30.0-100) Influenza Type A Antigen Negative (Negative) Influenza Type B Antigen Negative (Negative) SARS-CoV-2 Antigen (Rapid) Negative (NEGATIVE) Urine Color Light-yellow (Yellow) Urine Clarity Clear (Clear) Urine pH 5.5 (5.0-9.0) Urine Specific [place] 1.024 (1.001-1.035) Urine Protein Negative (Negative) Urine Ketones Negative (Negative) Urine Blood Negative /uL (Negative) Urine Nitrite Negative (Negative) Urine Bilirubin Negative (Negative) Urine Urobilinogen Normal mg/dL (Negative) Urine Leukocyte Esterase Negative /uL (Negative) Urine RBC 1 /hpf (0 - 4) Urine Microscopic WBC 2 /HPF (0-5) Urine Squamous Epithelial Cells Few /hpf (<5) Urine Bacteria /hpf (None Seen) Urine Mucus Few (None Seen) Urine Glucose Normal mg/dL (Normal) Platelet Estimate Adequate Hypochromasia (manual) Moderate Microcytosis Moderate Ovalocytes Few Stomatocytes D-Dimer, Quantitative 0.23 mg/L FEU (0.0-0.49) Iron Level 22 ug/dL (50-170) Total Iron Binding Capacity 493 ug/dL (250-425) Percent Iron Saturation 4.5 % (15-50) Ferritin 4.2 ng/mL (10-291) Troponin I High Sensitivity < 3 ng/L (</=34) Thyroid Stimulating Hormone (TSH) 1.32 uIU/mL (0.55-4.78) Other Laboratory Tests 07/19/24 03:16 Brief Hx & Hospital Course: History of Present Illness A 43-year-old female with a past medical history of asthma presents to the emergency department with a complaint of shortness of breath and pleuritic right upper chest pain for the past three days. She describes the pain as sharp, worse with inspiration, and localized to a tender area on palpation. She also reports a dry cough that began 1 days ago. The SOB is due to the pain. She denies fever, chills, nausea, vomiting, or recent upper respiratory infections. Laboratory evaluation revealed hypokalemia and anemia with a microcytic pattern. Iron panel results indicate iron deficiency anemia. Further history revealed metrorrhagia, with the last menstrual period in May, which was described as significantly heavy. Course of hospitalization: Long discussion was made with the patient. She states that she was having wheezing and shortness of breath prior to coming in the hospital. She reports that prolonged cough over the past several days has caused her to have right- sided chest pain, worse with the coughing. Discussed with the patient her x-ray and lab results. Patient was agreeable to be discharged home. The patient did have consultation with OBGYN regarding her uterine fibroids. No further recommendations at this time as an inpatient. Patient was instructed to follow up with her PCP in 1-2 weeks. A refill was provided for her albuterol nebulizer as well as Motrin 600 mg p.o. t.i.d. as needed for pleuritic chest pain. Patient was agreeable with discharge plan. All questions answered. Physical examination General: Alert and Oriented x3. No acute distress. Well-nourished. Obese Eyes: EOMI. Anicteric. HENT: Moist mucous membranes. Lungs: Clear to auscultation bilaterally. No accessory muscle use. Cardiovascular: Regular rate and rhythm. No murmur. No JVD. Abdomen: Soft, non-tender and non-distended. No palpable masses. Extremities: No edema. Non-tender. Skin: No rashes or lesions. Warm. Neurologic: No focal neurological deficits. CN II-XII grossly intact, but not individually tested. Psychiatric: Cooperative. Appropriate mood and affect. Total time spent with patient discussing and formulating plan of care: 35 minutes. This medical document was created using an electronic medical record system with [employer] system. Although this document has been carefully reviewed, there may still be some phonetic and typographical errors. These areas are purely typographical due to imperfections of the software programs, and do not reflect any compromise in the patient's medical care. Consults/Reason for consult OBGYN: Uterine fibroid Condition at Discharge: Fair Final Diagnosis/Problems List Acute asthma exacerbation Secondary diagnosis: Pleuritic chest pain Hypokalemia Uterine fibroids Anemia Discharge Disposition: Home Discharge Instruct/Medications Diet: Regular Activity: No Restrictions, As Tolerated Follow Up/Referral: PCP in 1-2 weeks Medications: Continue all home medications [id number] ibuprofen for pleuritic chest pain Ventolin MDI q.4 hours as needed for dyspnea 36 Discharge Statement: "Patient was advised to return to the ER or call 911 if any headaches, dizziness, shortness of breath, chest pain, abdominal pain, bleeding, fevers, or worsening of medical condition. Patient was counseled about treatment plan, medications, possible side effects, patientverbalized understanding. All questions were answered to the best of my ability. This discharge took greater then 30 minutes in planning, reviewing documentation, counseling the patient, and discussing with other team members." ASSESSMENT ASSESSMENT Assessment Acute asthma exacerbation Date of Service: Jul 19, 2024 Billing Provider: MINA MORALES NP Common Visit Codes: 85088-YXX/OBS DISCH DAY >30min MINA MORALES NP Jul 19, 2024 16:13
[2024-07-19 16:50] VITALS: BP 120/54; PULSE 94; RESP 16; TEMP 36.9; O2SAT 98
== END 2024-07-19 17:54 | disposition home or self-care (01) | DRG 206 ==
LOC: ER 14:27 → OVERFLOW 20:42
PROVIDERS: ADMIT Nurse Practitioner Acute Care; ATTEND Nurse Practitioner Acute Care
DX: J98.4 Other disorders of lung (principal); M94.0 Chondrocostal junction syndrome [Tietze]; J45.901 Unspecified asthma with (acute) exacerbation; Z20.822 Contact with and (suspected) exposure to COVID-19; D50.9 Iron deficiency anemia, unspecified; D25.9 Leiomyoma of uterus, unspecified; E87.6 Hypokalemia; I10 Essential (primary) hypertension; Z82.5 Family history of asthma and other chronic lower respiratory diseases; Z79.899 Other long term (current) drug therapy
CPT/HCPCS: 36415; 71045; 76856; 80048; 80053; 80061; 81001; 82306; 82607; 82728; 83036; 83540; 83550; 83735; 84100; 84443; 84484; 85025; 85379; 87426; 87804; G0378